=== PATIENT | female | born 1980 | race Caucasian/White ===

== ENCOUNTER 2017-04-25 12:01 | Emergency (ER) | payer OTHER ==
[~2017-04-25] VITALS: Ht 160 cm; Wt 70.3 kg
--- NOTE | 2017-04-25 12:43 | ED AMS/SEIZURE/WEAK/DIZZY ---
History of Present Illness General Chief Complaint: General Adult Stated Complaint: KALEIGH RIB PAIN AND VERTIGO Source: patient Exam Limitations: no limitations Vital Signs & Intake/Output Vital Signs & Intake/Output Vital Signs Date Time Temp Pulse Resp B/P B/P Pulse O2 O2 Flow FiO2 Mean Ox Delivery Rate 04/25 1527 97.9 62 16 121/71 100 Room Air 04/25 1222 100 Room Air 04/25 1214 82 16 133/72 100 Room Air 04/25 1204 98.1 86 16 136/86 99 Room Air ED Intake and Output 04/26 0000 04/25 1200 Intake Total 30 Output Total Balance 30 Intake, Oral 30 Patient 155 lb Weight Allergies Coded Allergies: MDX - Cephalexin (From KEFLEX) (Intermediate, VOMITING/HIVES 10/05/14) MDX - Doxycycline (DOXYCYCLINE) (Intermediate, VOMITING/HIVES 10/05/14) Reconcile Medications Meclizine HCl 25 MG TABLET 1 TAB PO TIDPRN PRN dizziness Meloxicam (Mobic) 15 MG TABLET 1 TAB PO DAILY PRN pain Ondansetron (Zofran Odt) 4 MG TAB.RAPDIS 1 TAB SL TID PRN nausea Triage Note: PT STATE STHAT SINCE LAST PM SHE HAS BEEN HAVING EPISODES OF VERTIGO AND THAT SHE HAS BEEN HAVING INTERMITANT BILATERAL RIB PAIN UNDER HER AXILARY AREA, WITH SLIGHT SOB, O2 SAT 99 % ON RA. Triage Nurses Notes Reviewed? yes Onset: Gradual Duration: day(s): Timing: recent history Injury Environment: home Severity: moderate : No Patient currently breastfeeds: No HPI: 37yo female with hx of vertigo presents to ED complaining of worsening vertigo waking her up from sleep this AM, described as the room around her spinning. Patient reports associated nausea with her dizziness. Her symptoms are worse with positional changes of her head. Patient also reports intermittent left sided lateral rib cage pain for the past several days. She reports today she is now having right sided lateral rib cage pain as well. Symptoms are associated with dyspnea. Pain is intermittent, not associated with exertion or breathing. The patient denies fevers, chills, abdominal pain, vomiting, recent travel, hemoptysis, cough, nasal congestion, leg swelling. (Ada DIAS,Jenny Hook) Past History Travel History Traveled to [place] past 21 day No Medical History Any Pertinent Medical History? see below for history Neurological: vertigo, MIGRAINE HEADACHE Cardiovascular: NONE Respiratory: NONE Gastrointestinal: NONE Hepatic: NONE Renal: NONE Psychiatric: NONE Endocrine: NONE Blood Disorders: PERNICIOUS ANEMIA Cancer(s): NONE LIFE INSURANCE SALESPERSON/Reproductive: NONE Surgical History Surgical History: N Psychosocial History What is your primary language Singaporean Tobacco Use: Never used ETOH Use: denies use Illicit Drug Use: denies illicit drug use Family History Hx Contributory? No (Jenny Pappas) Review of Systems Review of Systems Constitutional: Reports: no symptoms. EENTM: Reports: no symptoms. Respiratory: Reports: see HPI. Cardiovascular: Reports: see HPI. GI: Reports: see HPI. Genitourinary: Reports: no symptoms. Musculoskeletal: Reports: see HPI. Skin: Reports: no symptoms. Neurological/Psychological: Reports: see HPI. Hematologic/Endocrine: Reports: no symptoms. Immunologic/Allergic: Reports: no symptoms. All Other Systems: Reviewed and Negative (Jenny Pappas) Physical Exam Physical Exam General Appearance: well developed/nourished, no apparent distress, alert, awake Head: atraumatic, normal appearance Eyes: Bilateral: normal appearance, PERRL, EOMI. 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 No CVA/TIA Diagnosis No Sepsis Present: No Sepsis Focused Exam Completed? No All Positive = PERC Ruled Out: Positive: age < 50 years, heart rate < 100 bpm, O2 sat > 94%, no hemoptysis, no prior DVT or PE, no unilateral leg swellin, no surgery/trauma w/in 4w. Negative : no hormone use. (Jenny Pappas) Progress Differential Diagnosis: anemia, benign positional vertigo, dehydration, electrolyte imbalance, intracranial Hem., labrynthitis, Meniere's disease, postural hypotension, ACS, PE, costocondritis, BPPV Plan of Care: Orders Procedure Date/time Status TROPONIN LEVEL 04/25 1239 Complete D-DIMER 04/25 1239 Complete COMPREHENSIVE METABOLIC PANEL 04/25 1239 Complete CBC WITHOUT DIFFERENTIAL 04/25 1239 Complete EKG 04/25 1239 Active URINE 04/25 1209 Complete Laboratory Tests 04/25/17 1357: Urine Test NEGATIVE 04/25/17 1304: Anion Gap 8, Estimated GFR > 60, BUN/Creatinine Ratio 20.0, Glucose 80, Calcium 9.2, Total Bilirubin 1.2, AST 19, ALT 29, Alkaline Phosphatase 34, Troponin I < 0.01, Total Protein 6.4, Albumin 3.7, Globulin 2.7, Albumin/Globulin Ratio 1.4, D-Dimer High Sensitivty < 200, CBC w Diff NO MAN DIFF REQ, RBC 4.50, MCV 92.2, MCH 31.1 H, MCHC 33.7, RDW 14.1, MPV 8.1, Gran % 72.1, Lymphocytes % 20.1 L, Monocytes % 6.0, Eosinophils % 1.2, Basophils % 0.6, Absolute Granulocytes 5.9, Absolute Lymphocytes 1.6, Absolute Monocytes 0.5, Absolute Eosinophils 0.1, Absolute Basophils 0 Chest x-ray without acute abnormality. Patient's blood work is within normal limits, troponin negative, d-dimer negative. Low suspicion for acute coronary syndrome and PE at this time, the patient has atypical reproducible lateral chest wall tenderness. Likely costochondritis. Patient reports improvement in her dizziness following meclizine. She was prescribed meloxicam for pain/ costochondritis and meclizine regarding her dizziness symptoms. The patient is neurologically intact, no head trauma, she is mentating well. There is a low suspicion for ICH at this time. Patient is ambulatory without difficulty here in the emergency department. She will follow up with her primary care doctor. She was given strict return precautions. The patient agrees with the plan of care. The patient was discussed with Dr. Givens who agrees with this plan. Diagnostic Imaging: Viewed by Me: Radiology Read. Discussed w/RAD: Radiology Read. Radiology Impression: PATIENT: LA MATTHEWS PRESENT AGE: 37 PATIENT ACCOUNT NO: [id number] : 82 LOCATION: [facility] ORDERING PHYSICIAN: Jenny DIAS SERVICE DATE: 04/25/17 EXAM TYPE: RAD - XRY-CHEST XRAY, TWO VIEWS EXAMINATION: XR CHEST CLINICAL INFORMATION: Rule out pneumonia. COMPARISON: None TECHNIQUE: 2 views of the chest were obtained. FINDINGS: No airspace opacities or pleural effusions are seen. The cardiomediastinal silhouette is normal. No acute osseous abnormality is seen. IMPRESSION: Clear lungs. No acute process. DICTATED BY: Carson Hoffmann MD DATE /TIME DICTATED:04/25/171440 SCREW EYE ASSEMBLER:RONALD DATE/TIME TRANSCRIBED: 04/25/171440 CONFIDENTIAL, DO NOT COPY WITHOUT APPROPRIATE AUTHORIZATION. < Electronically signed in Other Vendor System> SIGNED BY: Carson Hoffmann MD 04/25/171443 Initial ED EKG: sinus rhythm @71bpm, nonspecific ST changes (Ada DIAS,Jenny Hook) Departure Departure Disposition: HOME OR SELF CARE Condition: Stable Clinical Impression Primary Impression: Dizziness Secondary Impressions: Nausea, Rib pain Referrals: Raymundo Monsalve MD (PCP/Family) Additional Instructions: Take meclizine as prescribed as needed for dizziness. Take Mobic as prescribed as needed for pain. Take Zofran as prescribed as needed for nausea. Follow-up with her primary care doctor. Return with any worsening symptoms or concerns. Please note that there might be incidental findings in your evaluation that are unrelated to the current emergency department visit. Please notify your primary care doctor about this emergency department visit in order to obtain and review all of the testing performed so that these incidental findings can be monitored as needed. If you had an x-ray performed, please understand that some fractures may not be seen on the initial set of x-rays. If your symptoms persist you might need a repeat set of x-rays to check for such a fracture. If you had a laceration evaluated, please understand that foreign bodies such as glass or wood may not be visible to the naked eye or on plain x-rays. If the wound becomes red, swollen, increasingly more painful or if there is any drainage from the wound, please have it reevaluated by a physician for the possibility of a retained foreign body. If you're unable to follow up as outlined in the discharge instructions please return to the emergency department. Thank you for choosing the [facility] Emergency Department for your care. It was a pleasure to serve you today. Departure Forms: Customer Survey General Discharge Information Prescriptions: Current Visit Scripts Meloxicam (Mobic) 1 TAB PO DAILY PRN pain #15 TAB Ondansetron (Zofran Odt) 1 TAB SL TID PRN nausea #10 TAB Meclizine HCl 1 TAB PO TIDPRN PRN dizziness #15 TAB (Ada DIAS,Jenny Hook) PA/MANAGER GAMES Co-Sign Statement Statement: ED Attending supervision documentation- [] I saw and evaluated the patient. I have also reviewed all the pertinent lab results and diagnostic results. I agree with the findings and the plan of care as documented in the PA's/MANAGER GAMES's documentation. [X] I have reviewed the ED Record and agree with the PA's/MANAGER GAMES's documentation. [] Additions or exceptions (if any) to the PAs/MANAGER GAMES's note and plan are summarized below: [] (Chon CHACON,Carson aFrley)
[2017-04-25 13:16] LABS: ABSOLUTE BASOPHIL COUNT 0 /CUMM (0.0-0.2); ABSOLUTE EOSINOPHIL COUNT 0.1 /CUMM (0.0-0.7); ABSOLUTE GRANULOCYTE CT 5.9 /CUMM (1.4-6.5); ABSOLUTE LYMPH COUNT 1.6 /CUMM (1.2-3.4); ABSOLUTE MONOCYTE COUNT 0.5 /CUMM (0.10-0.60); BASOPHIL % 0.6 % (0.0-2.0); EOSINOPHIL % 1.2 % (0-5); GRANULOCYTE % 72.1 % (42.2-75.2); HEMATOCRIT 41.5 % (37-47); MEAN CORPUSCULAR HGB 31.1 PG (27.0-31.0); MEAN CORPUSCULAR HGB CONC 33.7 G/DL (33.0-37.0); MEAN CORPUSCULAR VOLUME 92.2 FL (81.0-99.0); MEAN PLATELET VOLUME 8.1 FL (7.4-10.4); PLATELET COUNT 232 /CUMM (130-400); RBC DISTRIBUTION WIDTH 14.1 % (11.5-14.5); WHITE BLOOD CELL COUNT 8.2 /CUMM (4.8-10.8)
--- NOTE | 2017-04-25 14:44 | RADIOLOGY REPORT ---
EXAMINATION: XR CHEST CLINICAL INFORMATION: Rule out pneumonia. COMPARISON: None TECHNIQUE: 2 views of the chest were obtained. FINDINGS: No airspace opacities or pleural effusions are seen. The cardiomediastinal silhouette is normal. No acute osseous abnormality is seen. IMPRESSION: Clear lungs. No acute process.
[2017-04-25] MEDS ORDERED: ZOFRAN ODT4 M1 SL (15:16)
[2017-04-25] MEDS ORDERED: MOBIC15 M1 PO (15:16)
[2017-04-25] MEDS ORDERED: MECLIZINE HCL25 MG PO (15:16)
[2017-04-25 15:27] VITALS: BP 121/71
== END 2017-04-25 15:34 ==
LOC: ERH 12:01
PROVIDERS: Physician Assistant
DX: R42 Dizziness and giddiness (principal); R07.81 Pleurodynia; R11.0 Nausea
CPT/HCPCS: 71046; 81025; 93005; 93010